=== PATIENT | female | born 1980 | race Caucasian/White ===

== ENCOUNTER → 2016-05-21 | Outpatient (CLI) | payer OTHER ==
[~2016-05-21] MED LIST: AMPH12.5 PO; BUPR-173 PO; BUTA1CAP57 PO; CARB200T4 PO; CEFD300C2 PO; CHOL500014 PO; CIPR500T3 PO; DIAZ5TAB PO; DOCU100C PO; DULO60CA7 PO; HYDR-882 PO; HYDR10TA PO; HYDR8TAB PO; IRON1TAB60 PO; LEVO125T5 PO; MECL25TA4 PO; MULT-658 PO; OXYM20TA13 PO; PROM25TA10 PO
[2016-05-21 12:51] LABS: HEMOGLOBIN 14.1 g/dL (11.7-16.4)
[2016-05-21 13:26] LABS: ASPARTATE AMINO TRANSFERASE 9 U/L (15-37); BLOOD UREA NITROGEN 13 mg/dL (7-18)
== END | disposition home or self-care (01) ==
LOC: CFH 07:57
PROVIDERS: ATTEND Registered Nurse
DX: Z13.220 Encounter for screening for lipoid disorders (principal); G50.9 Disorder of trigeminal nerve, unspecified
CPT/HCPCS: 36415; 80053; 80061; 80156; 84443; 85025

== ENCOUNTER 2016-06-06 10:31 | Emergency (ER) | payer OTHER ==
[~2016-06-06] VITALS: Ht 167.6 cm; Wt 91.0 kg
[2016-06-06] MEDS ORDERED: SODIUM CHLORIDE FLUSH 10ML SYR IVF ONE (11:00)
[2016-06-06] MEDS ORDERED: OXCARBAZEPINE 150 MG TABLET PO ONE (11:00)
[2016-06-06] MEDS ORDERED: ONDANSETRON 2MG/ML, 2ML IVPush ONE (11:00)
[2016-06-06] MEDS ORDERED: HYDROmorphone 1 MG/ML, 1ML ONE ×2 (11:30→13:11)
[2016-06-06] MEDS ORDERED: ONDANSETRON 2MG/ML, 2ML ONE (11:31)
[2016-06-06] MEDS: HYDROmorphone 1 MG/ML, 1ML IVPush PRN ×2 (11:32→13:12)
[2016-06-06 13:48] VITALS: BP 109/72
== END 2016-06-06 13:55 | disposition home or self-care (01) ==
LOC: ED 11:01
DX: G50.0 Trigeminal neuralgia (principal)
CPT/HCPCS: 96374; 96375; 96376; 99284; J1170; J2405

== ENCOUNTER → 2016-06-14 | Outpatient (CLI) | payer OTHER ==
[~2016-06-14] MED LIST changes: +GADOBUTROL 10 MMOL/10 ML PFS ONE
== END | disposition home or self-care (01) ==
LOC: CFH 08:59
PROVIDERS: ATTEND Psychiatry & Neurology Neurology
DX: G50.8 Other disorders of trigeminal nerve (principal); J32.0 Chronic maxillary sinusitis; Z98.890 Other specified postprocedural states
CPT/HCPCS: 70553; A9585

== ENCOUNTER 2016-08-30 09:12 | Emergency (ER) | payer OTHER ==
[~2016-08-30] VITALS: Ht 167.6 cm; Wt 98.3 kg
[~2016-08-30 09:12] MED LIST changes: -CEFD300C2 PO; +CEFD300C37 PO; -GADOBUTROL 10 MMOL/10 ML PFS ONE
[2016-08-30] MEDS ORDERED: MAGNESIUM SULFATE PMX 2GM/50ML 50 ML IV ONE (10:00)
[2016-08-30] MEDS ORDERED: LORazepam 2 MG/ML, 1ML IVPush ONE (10:00)
[2016-08-30] MEDS ORDERED: methylPREDNISolone SOD SUCC 125 MG/2 ML IVP ONE (10:00)
[2016-08-30] MEDS ORDERED: SODIUM CHLORIDE FLUSH 10ML SYR IVF ONE (10:00)
[2016-08-30] MEDS ORDERED: MAGNESIUM SULFATE 1 GM in SODIUM CHLORIDE 0.9% 50 ML IV ONE (10:00)
[2016-08-30] MEDS ORDERED: ALBUTEROL/IPRATROPIUM 2.5MG/0.5MG, 3 ML NPPB SCH (10:00)
[2016-08-30] MEDS ORDERED: LORazepam 2 MG/ML, 1ML ONE (10:03)
[2016-08-30] MEDS ORDERED: methylPREDNISolone SOD SUCC 125 MG/2 ML ONE (10:04)
[2016-08-30] MEDS ORDERED: ALBUTEROL/IPRATROPIUM 2.5MG/0.5MG, 3 ML ONE (10:09)
[2016-08-30 10:15] LABS: BLOOD UREA NITROGEN 7 mg/dL (7-18)
[2016-08-30 10:20] LABS: ASPARTATE AMINO TRANSFERASE 17 U/L (15-37)
[2016-08-30 10:21] LABS: IS PT STATUS REG ER OR PRE ER? YES
[2016-08-30] MEDS ORDERED: OMNIPAQUE 350 MG/ML, 100ML BOTTLE ONE (11:17)
[2016-08-30 12:23] VITALS: BP 116/72
== END 2016-08-30 12:28 | disposition home or self-care (01) ==
LOC: ED 10:06
DX: J20.8 Acute bronchitis due to other specified organisms (principal); J98.01 Acute bronchospasm; Z79.891 Long term (current) use of opiate analgesic; Z88.6 Allergy status to analgesic agent
CPT/HCPCS: 36415; 71275; 80053; 83880; 84484; 84703; 85025; 93005; 94640; 96365; 96375; 99285; J2060; J2930; J3475; Q9967; J7620

== ENCOUNTER → 2016-09-28 | Outpatient (CLI) | payer OTHER ==
[~2016-09-28] MED LIST changes: +GADOBUTROL 10 MMOL/10 ML PFS ONE
== END | disposition home or self-care (01) ==
LOC: CFH 07:30
PROVIDERS: ATTEND Psychiatry & Neurology Neurology
DX: M50.20 Other cervical disc displacement, unspecified cervical region (principal); M50.30 Other cervical disc degeneration, unspecified cervical region; Q07.00 Arnold-Chiari syndrome without spina bifida or hydrocephalus; G50.9 Disorder of trigeminal nerve, unspecified
CPT/HCPCS: 72156; A9585

== ENCOUNTER 2017-12-06 13:35 | Emergency (ER) | payer OTHER ==
[~2017-12-06] VITALS: Ht 167.6 cm; Wt 89.0 kg
[~2017-12-06 13:35] MED LIST changes: -CHOL500014 PO; +CHOL500045 PO; +DOCU-180 PO; -DOCU100C PO; -GADOBUTROL 10 MMOL/10 ML PFS ONE; +HYDR-3653 PO; -HYDR-882 PO
[2017-12-06] MEDS ORDERED: LIDOCAINE-MPF 1%, 5ML ONE (13:57)
[2017-12-06] MEDS ORDERED: LIDOCAINE-MPF 1%, 5ML INFIL ONE (14:00)
[2017-12-06 15:01] VITALS: BP 99/65
== END 2017-12-06 15:32 | disposition home or self-care (01) ==
LOC: ED 15:15
DX: S61.512A Laceration without foreign body of left wrist, initial encounter (principal); E07.9 Disorder of thyroid, unspecified; F32.9 Major depressive disorder, single episode, unspecified; F17.200 Nicotine dependence, unspecified, uncomplicated; Z72.9 Problem related to lifestyle, unspecified; Z88.5 Allergy status to narcotic agent; W25.XXXA Contact with sharp glass, initial encounter; Y93.89 Activity, other specified; Y99.8 Other external cause status; Y92.009 Unspecified place in unspecified non-institutional (private) residence as the place of occurrence of the external cause
CPT/HCPCS: 12032; 12042; 99284

== ENCOUNTER 2018-08-06 18:31 | Emergency (ER) | payer OTHER ==
[~2018-08-06] VITALS: Ht 165.1 cm; Wt 89.4 kg
[2018-08-06 19:11] LABS: ANION GAP 5 mmol/L (5-15); CALCIUM 8.8 mg/dL (8.5-10.1); CHLORIDE 105 mmol/L (98-107)
[2018-08-06 19:12] LABS: CREATININE 1.04 mg/dL (0.55-1.02); MEAN CORPUSCULAR HEMOGLOBIN 23.8 pg (27.0-34.8); MEAN CORPUSCULAR HGB CONC 31.6 g/dL (32.4-35.8); MEAN CORPUSCULAR VOLUME 75.3 fL (80-100); MEAN PLATELET VOLUME 9.1 fL (7.4-10.4); PLATELET COUNT 380 x10^3/uL (130-400); RED BLOOD COUNT 5.16 x10^6/uL (3.82-5.3); RED CELL DISTRIBUTION WIDTH 27.2 % (9.6-15.2)
[2018-08-06 19:27] LABS: BASOPHILS % (AUTO) 1 % (0-1); EOSINOPHILS # (AUTO) 0.27 x10^3/uL (0-0.4); EOSINOPHILS % (AUTO) 2 % (1-7); LYMPHOCYTES # (AUTO) 2.02 x10^3/uL (1-3.4); LYMPHOCYTES % (AUTO) 18 % (22-44); MD MORPH REVIEW ONLY; MONOCYTES # (AUTO) 0.61 x10^3/uL (0.2-0.8); MONOCYTES % (AUTO) 6 % (2-9); NEUTROPHILS # (AUTO) 8.17 x10^3/uL (1.8-6.8); NEUTROPHILS % (AUTO) 73 % (42-75)
--- NOTE | 2018-08-06 19:29 | NUR ---
ASSUMED CARE OF PT AT THIS TIME
--- NOTE | 2018-08-06 19:36 | NUR ---
PT IN RADIOLOGY AT THIS TIME
[2018-08-06 19:45] LABS: ANISOCYTOSIS 1+
[2018-08-06 19:46] LABS: HYPOCHROMIA 1+; MICROCYTOSIS 1+
[2018-08-06 19:47] LABS: OVALOCYTES 1+; TEAR DROPS 1+
[2018-08-06 19:48] LABS: <PLATELET ESTIMATE> ADEQUATE; <PLT MORPHOLOGY> NORMAL PLT MORPH
[2018-08-06] MEDS ORDERED: FROV2.5T4 PO (19:59)
[2018-08-06] MEDS ORDERED: DIVA500T2 PO (19:59)
[2018-08-06] MEDS ORDERED: GABA300S PO (19:59)
--- NOTE | 2018-08-06 20:03 | NUR ---
URINE SENT TO LAB FOR ANALYSIS
[2018-08-06 20:26] LABS: MICROSCOPIC AUTO
[2018-08-06 20:27] LABS: CULTURE INDICATED? NO
[2018-08-06] MEDS ORDERED: KETOROLAC 30 MG/1 ML IM ONE (20:30)
[2018-08-06] MEDS ORDERED: KETOROLAC 30 MG/1 ML ONE (20:45)
--- NOTE | 2018-08-06 20:51 | NUR ---
REPORT FROM GABI YORK. PT MEDICATED FOR PAIN. VSS. PT TO BE DISCHARGED.
--- NOTE | 2018-08-06 21:07 | NUR ---
Patient given discharge instructions and they have confirmed that they understand the instructions. Patient ambulatory with steady gait.
[2018-08-06 21:08] VITALS: BP 110/78
== END 2018-08-06 21:10 | disposition home or self-care (01) ==
LOC: ED 21:04
DX: N93.8 Other specified abnormal uterine and vaginal bleeding (principal); R55 Syncope and collapse; R10.2 Pelvic and perineal pain; R42 Dizziness and giddiness; R11.10 Vomiting, unspecified; F17.200 Nicotine dependence, unspecified, uncomplicated; Z88.5 Allergy status to narcotic agent; Z91.013 Allergy to seafood
CPT/HCPCS: 36415; 76830; 80048; 81001; 82040; 84703; 85025; 93005; 96372; 99284; J1885

== ENCOUNTER 2018-09-29 07:25 | Outpatient (CLI) | payer OTHER | END 2018-09-29 23:59 | disposition home or self-care (01) | LOC: CFH 07:25 | PROVIDERS: ATTEND Nurse Practitioner Primary Care | DX: R10.9 Unspecified abdominal pain (principal); E03.9 Hypothyroidism, unspecified; Z90.49 Acquired absence of other specified parts of digestive tract; Z79.899 Other long term (current) drug therapy | CPT/HCPCS: 74177; 76536; Q9967 ==

== ENCOUNTER → 2020-07-21 | Outpatient (CLI) | payer OTHER ==
[~2020-07-21] MED LIST changes: -CIPR500T3 PO; +CIPR500T4 PO; +DIVA500T2 PO; -DOCU-180 PO; +DOCU-192 PO; +FROV2.5T4 PO; +GABA300S PO; -HYDR8TAB PO; +HYDR8TAB44 PO; +MECL-101 PO; -MECL25TA4 PO
== END | disposition home or self-care (01) ==
LOC: CFH 08:50
PROVIDERS: ATTEND Family Medicine
DX: M50.323 Other cervical disc degeneration at C6-C7 level (principal)
CPT/HCPCS: 72050